=== PATIENT | male | born 1950 | race Caucasian/White ===

== ENCOUNTER 2024-11-08 07:15 | Outpatient (CLI) | payer MEDICARE ==
[2024-11-08] MEDS ORDERED: Iopamidol 370 76% 100 ML VIAL ONE (09:30)
[2024-11-09 16:27] LABS: Estimated GFR - POC 46.0
== END 2024-11-08 07:16 | disposition home or self-care (01) ==
LOC: CSHCT 07:15
PROVIDERS: ATTEND Nurse Practitioner Family
DX: I77.89 Other specified disorders of arteries and arterioles (principal); I77.810 Thoracic aortic ectasia; J98.09 Other diseases of bronchus, not elsewhere classified; M48.54XA Collapsed vertebra, not elsewhere classified, thoracic region, initial encounter for fracture
CPT/HCPCS: 71275; 82565

== ENCOUNTER 2024-12-01 14:05 | Outpatient (CLI) | payer MEDICARE | END 2024-12-01 14:06 | disposition home or self-care (01) | LOC: CSHMAMMO 14:05 | PROVIDERS: ATTEND Family Medicine | DX: N63.11 Unspecified lump in the right breast, upper outer quadrant (principal); N62 Hypertrophy of breast | CPT/HCPCS: 76642; 77066; G0279 ==

== ENCOUNTER 2025-01-06 08:55 | Outpatient (CLI) | payer MEDICARE | END 2025-01-06 08:56 | disposition home or self-care (01) | LOC: CSHULT 08:55 | PROVIDERS: ATTEND Internal Medicine Gastroenterology | DX: R10.9 Unspecified abdominal pain (principal); K21.9 Gastro-esophageal reflux disease without esophagitis | CPT/HCPCS: 76700 ==